=== PATIENT | male | born 1985 | race Asian ===

== ENCOUNTER 2017-10-22 16:11 | Emergency (ER) | payer BC | END 2017-10-22 16:38 | disposition home or self-care (01) | LOC: ED 16:11 | DX: S81.819A Laceration without foreign body, unspecified lower leg, initial encounter (principal) ==

== ENCOUNTER 2017-11-17 09:40 | Outpatient (CLI) | payer BC | END 2017-11-17 22:46 | disposition home or self-care (01) | LOC: RAD 09:40 | DX: S62.601D Fracture of unspecified phalanx of left index finger, subsequent encounter for fracture with routine healing (principal) ==